=== PATIENT | female | born 1985 | race Caucasian/White ===

== ENCOUNTER 2022-12-27 00:45 | Day surgery (SDC) | payer OTHER, SELFPAY ==
[2022-12-21 15:14] VITALS: BMI 47.7
--- NOTE | 2022-12-21 15:35 | PC.NURSE ---
Report to the Outpatient Waiting Room, entrance under the green pavilion located off [facility], at time __1045 on date _12/27/22 . Planned Procedure Time: _1245 . Time changes happen often and if your time is changed the preop area will call you the afternoon before. - You and your visitor will be asked to self-screen and do not enter if you have any COVID symptoms. - A mask is optional within the hospital at this time. Patients may have clear liquids (water, carbonated beverages, clear teas, apple juice) until 3 hours prior to surgery with a maximum of 20 ounces. - No food from midnight until time of surgery Take the following medications with a SIP of water the morning of surgery: __ALPRAZOLAM, CITALOPRAM, BUSPIRONE DO NOT STOP ANY OF YOUR OTHER PRESCRIPTION MEDICATIONS PRIOR TO SURGERY ?EXCEPT THE FOLLOWING Medications to discontinue per physician N/A Date to take last dose N/A Please no make-up, nail tunisian, hairspray, perfume, deodorant, or body powder the day of surgery. No jewelry (including any body piercings) or valuables the day of surgery, leave them at home. Please take a shower or bath the night before, or the morning of, surgery with an antibacterial soap. Wear comfortable, loose fitting clothing. - Jewelry must be removed prior to entering the operating room. Rings and piercings that are not removed may be cut off. - The hospital will not accept responsibility for valuables. - Please leave all valuables, including medications, at home the day of surgery. If you are going home after surgery, a licensed lifter/driver must drive you home. - NO public transportation without another adult if you receive anesthesia. - We recommend that an adult stay with you for 24 hours following discharge. - We also recommend that you do not drive, make important decision, drink alcoholic beverages, or take any drugs that were not prescribed by your health care provider for at least 24 hours after your discharge time. Follow any additional instructions given to you from your surgeon. If you or anyone in your household have experienced Covid symptoms in the past week, please notify your surgeon or the nurse liaison at the phone number below for possible testing. Telephone instructions given to __HOA and asked if any additional questions and then verbalized understanding. Patient advised to call surgeon office or pre surgery nurse liaison [phone] if any additional questions.
--- NOTE | 2022-12-27 07:37 | WPDHPUPDATE1 ---
History and Physical Update Update Date/Time: 12/27/22 07:37 History and Physical has been reviewed, including an updated exam of the patient. There are NO changes in the patient's condition. Risks, benefits, and alternatives have been discussed and questions answered. Patient agrees to proceed with procedure.
--- NOTE | 2022-12-27 07:37 | PM.HPGS ---
History of Present Illness History of Present Illness Consent: Risks, benefits, and alternatives have been discussed and questions answered. Patient agrees to proceed with procedure. Chief complaint: Menorrhagia Narrative: Alyse Romero is a 37 year old female with heavy cycles. Cycles are regular lasting approximately 5 days. However 3 days are quite heavy changing 2 pads at a time every 2hours with clots and tissue. In addition the patient option also has severe cramping. Was recommended to proceed with D&C hysteroscopy. Risks of infection, bleeding, perforation, and possible pathology are reviewed. Patient voices understanding and agrees to proceed. Review of Systems Review of Systems: not repeated day of surgery; patient states no changes in status PMFSH Past Medical History Medical History (Updated 12/27/22 @ 07:42 by Lana Leo MD) Asthma Binge eating disorder Cystic acne Depression with anxiety Morbid (severe) obesity due to excess calories BMI is 54 Surgical History Surgical History (Updated 12/27/22 @ 07:40 by Lana Leo MD) History of cholecystectomy Family History Family History Grandparent Cerebrovascular accident Father COVID-19 Mother COVID-19 Anxiety Hypertension Other Acute myocardial infarction Social History Social History Smoking packs per day: 0.25 Smoking cigarettes per day: 5.0 Years smoked: 10 Smoking pack-years: 2.50 Smoking status: Light tobacco smoker Tobacco type: e-cigarettes/vaping Second hand tobacco smoke exposure: No Smoking end date: 12/21/17 Alcohol intake: never Drinks per week: 0 Substance use: never Substance use type: does not use Lack of Transportation: No Lack of Food: Never True Current Housing: I Have Housing Concerned About Future Housing: No Difficulty Paying Gas/Electric Bills: No Difficulty Paying for Meds: No Currently Unemployed: No Education: Bachelor's Degree Difficulty w/ Childcare or Family Care: No Living arrangements: with family 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 Gender identity (if verbalized by the patient): Female Spiritual care concerns: No Meds Home Medications and Allergies Home Medications Medication Instructions Recorded Confirmed Type albuterol sulfate 90 mcg/actuation See Rx Instructions .Route 11/01/22 12/21/22 Rx aerosol inhaler .COMPLEX #6.7 grams citalopram 40 mg tablet See Rx Instructions .Route 11/03/22 12/21/22 Rx .COMPLEX #90 tabs alprazolam 0.5 mg tablet 0.5 mg PO BID PRN anxiety #45 tabs 11/11/22 12/21/22 Rx triamcinolone acetonide 0.5 % 1 applic topical BID #15 grams 11/11/22 12/21/22 Rx topical cream buspirone 15 mg tablet 15 mg PO BID #60 tabs 11/30/22 12/21/22 Rx esomeprazole magnesium 20 mg 20 mg PO DAILY 11/30/22 12/21/22 History capsule,delayed release (Nexium) lisdexamfetamine 20 mg capsule 20 mg PO DAILY #30 caps 11/30/22 12/21/22 Rx (Vyvanse) clindamycin 1 %-benzoyl peroxide 5 1 applic topical DAILY PRN EZCEMA 12/21/22 12/21/22 History % topical gel Allergies Allergy/AdvReac Type Severity Reaction Status Date / Time pseudoephedrine AdvReac Unknown Shakiness Verified 12/21/22 15:31 Exam Const: General: alert and obese (315lb with a BMI of 54.1) Orientation/consciousness: patient oriented x3 Resp: Effort & Inspection: normal respiratory effort GI: GI Palp: Yes Soft to palpation, No Tenderness to palpation present (GI) and No Palpable mass present : External Female Exam: normal external appearance Speculum Exam - Vagina: normal appearance of the vagina and normal vaginal discharge Speculum Exam - Cervix: normal appearance of the cervix Bimanual exam- vagina & uterus: normal bimanual exam and other (Suboptimal exam due t
[2022-12-27] MEDS: LACTATED RINGERS 1,000 ML 30 ML IV CONT (11:30)
--- NOTE | 2022-12-27 11:42 | WPDANESEPPF ---
Anes - Initial Pre Proc Eval Procedure: Operation Date: 12/27/22 12:45 Proposed Procedures p Hysteroscopy Dilation and Curettage - Lana Leo MD Date/Time: 12/27/22 11:42 Surgeon: Lana Leo MD Pre Op Diagnosis: Menorrhagia Patient Data Age: 37 Gender: F Height: 1.63 m Weight: 126 kg Allergies Allergy/AdvReac Type Severity Reaction Status Date / Time pseudoephedrine AdvReac Unknown Shakiness Verified 12/21/22 15:31 Home Medications Medication Instructions Recorded Confirmed Type albuterol sulfate 90 mcg/actuation See Rx Instructions .Route 11/01/22 12/21/22 Rx aerosol inhaler .COMPLEX #6.7 grams citalopram 40 mg tablet See Rx Instructions .Route 11/03/22 12/21/22 Rx .COMPLEX #90 tabs alprazolam 0.5 mg tablet 0.5 mg PO BID PRN anxiety #45 tabs 11/11/22 12/21/22 Rx triamcinolone acetonide 0.5 % 1 applic topical BID #15 grams 11/11/22 12/21/22 Rx topical cream buspirone 15 mg tablet 15 mg PO BID #60 tabs 11/30/22 12/21/22 Rx esomeprazole magnesium 20 mg 20 mg PO DAILY 11/30/22 12/21/22 History capsule,delayed release (Nexium) lisdexamfetamine 20 mg capsule 20 mg PO DAILY #30 caps 11/30/22 12/21/22 Rx (Vyvanse) clindamycin 1 %-benzoyl peroxide 5 1 applic topical DAILY PRN EZCEMA 12/21/22 12/21/22 History % topical gel Patient hx anesthesia problems: none Family hx anesthesia problems: none Results Review: All pre-operative results and documents have been reviewed as part of the pre-operative evaluation. [facility] Past Medical History Medical History (Updated 12/27/22 @ 07:42 by Lana Leo MD) Asthma Binge eating disorder Cystic acne Depression with anxiety Morbid (severe) obesity due to excess calories BMI is 54 Surgical History Surgical History (Updated 12/27/22 @ 07:40 by Lana Leo MD) History of cholecystectomy Family History Family History Grandparent Cerebrovascular accident Father COVID-19 Mother COVID-19 Anxiety Hypertension Other Acute myocardial infarction Social History Social History Smoking packs per day: 0.25 Smoking cigarettes per day: 5.0 Years smoked: 10 Smoking pack-years: 2.50 Smoking status: Light tobacco smoker Tobacco type: e-cigarettes/vaping Second hand tobacco smoke exposure: No Smoking end date: 12/21/17 Alcohol intake: never Drinks per week: 0 Substance use: never Substance use type: does not use Lack of Transportation: No Lack of Food: Never True Current Housing: I Have Housing Concerned About Future Housing: No Difficulty Paying Gas/Electric Bills: No Difficulty Paying for Meds: No Currently Unemployed: No Education: Bachelor's Degree Difficulty w/ Childcare or Family Care: No Living arrangements: with family 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 Gender identity (if verbalized by the patient): Female Spiritual care concerns: No Anes - Eval Final PreProcedure Day of Procedure 12/27/22 11:42 Patient weight: morbidly obese Heart: regular rate and rhythm Lungs: clear to auscultation Airway: Mallampati scale class III Neurological: alert and oriented Last oral intake: >/= 8 hours ASA classification: III Emergent: no Anesthetic plan: proceed Anesthesia type and monitoring: general GIVS (LMA if needed) and LMA and standard monitoring Results Review: All pre-operative results and documents have been reviewed as part of the pre-operative evaluation. Informed Consent: The patient's anesthetic plan and its attendant risks and benefits were discussed with the patient/family/POA. Questions were solicited and answers provided to the satisfaction of the patient/family/POA.
[2022-12-27] MEDS: ACETAMINOPHEN 500 MG TABLET 1000 MG PO (12:00)
[2022-12-27 12:10] VITALS: BP 147/93; PULSE 93; RESP 16; TEMP 36.9; O2SAT 97
--- NOTE | 2022-12-27 13:03 | W.PM.PROC2 ---
Procedure Note - Detailed Date of Procedure 12/27/22 Pre-op Diagnosis Menorrhagia Post-op Diagnosis Same Procedure Performed D&C hysteroscopy Surgeon Lana Leo MD Anesthesia MAC Findings Uterus sounds to 7cm and appears grossly normal Description of Procedure The patient is taken to the operating room and placed under anesthesia in the dorsal lithotomy position. She was prepped and draped in the usual sterile fashion. [place] speculum was placed in the vagina and the cervix grasped on the anterior lip with a tenaculum. The uterus is sounded to 7cm. Hysteroscope was placed and with no abnormalities noted it is removed. The 00 sharp curette is used to curette the endometrium until a good uterine cry was noted in all areas. Minimal material was obtained. Instruments are removed. Sponge, needle, and instrument counts are correct per the OR staff. The patient was awakened from anesthesia and taken to recovery in stable condition. Estimated Blood Loss 5 Drains No Packing No Pathology Yes (Endometrial curettings) Complications No immediate complications Condition Stable Disposition PACU
[2022-12-27 13:04] VITALS: BP 150/95; PULSE 84; RESP 16; O2SAT 98
[2022-12-27] MEDS: fentaNYL CITRATE INJ (*CRX) 100 MCG/2 ML VIAL 25 MCG IV PUSH ×3 (13:29→13:42)
[2022-12-27 13:30] VITALS: BP 154/93; PULSE 69; RESP 16; O2SAT 98
[2022-12-27 14:00] VITALS: BP 164/103; PULSE 74; RESP 16
[2022-12-27] MEDS: oxyCODONE HCL (*CRX) 5 MG TAB IR PO (14:07)
[2022-12-27 14:30] VITALS: BP 164/101; PULSE 73; RESP 16
--- NOTE | 2022-12-27 14:35 | SUR.PHASEII ---
1415 DR. ALONSO AWARE OF ELEVATED BP'S; OKAY'D FOR PATIENT TO GO HOME
== END 2022-12-27 14:40 | disposition home or self-care (01) ==
PROVIDERS: PCP Family Medicine; Visit Provider Obstetrics & Gynecology Gynecology
PROC: 0U5B8ZZ Destruction of Endometrium, Via Natural or Artificial Opening Endoscopic (ICD-10-PCS; CPT 58563; principal; 2022-12-27 12:45)
DX: N92.0 Excessive and frequent menstruation with regular cycle (principal); J45.909 Unspecified asthma, uncomplicated; F50.81 Binge eating disorder; F41.8 Other specified anxiety disorders; F17.290 Nicotine dependence, other tobacco product, uncomplicated; Z79.51 Long term (current) use of inhaled steroids; E66.01 Morbid (severe) obesity due to excess calories; Z68.43 Body mass index [BMI] 50.0-59.9, adult
CPT/HCPCS: 58558; 88305; A9270; J1885; J2250; J2704; J3010; J7120

== ENCOUNTER 2022-12-30 11:30 | Emergency (ER) | payer OTHER, SELFPAY ==
--- NOTE | ~2022-12-30 | XR_ITS ---
EXAMINATION: XR thoracic spine 3V DATE: 12/30/2022 15:09 INDICATION: Thoracic back pain TECHNIQUE: AP, lateral and lateral swimmer's views of the thoracic spine were obtained. COMPARISON: 11/09/2009 FINDINGS: Alignment is normal. There is mild loss of intervertebral disc space height at multiple lev els in the thoracic spine. The vertebral body heights are maintained. Cholecystectomy clips are noted . There is no fracture. IMPRESSION: 1. Mild thoracic spondylosis without acute findings. Reviewed, dictated and finalized at location L.
[2022-12-30 11:46] VITALS: BP 151/102; PULSE 86; RESP 20; TEMP 36.7; O2SAT 99
[2022-12-30 14:51] LABS: Appearance Urine Clear (Clear); Bacteria Urine Rare /hpf; Bilirubin Urine Negative (Negative); Blood Urine 2+ (Negative); Color Urine Yellow (Yellow); Glucose Urine UA Negative (Negative); Ketones Urine Negative (Negative); Leukocyte Esterase Ur Trace LEU/UL (Negative); Nitrate Urine Negative (Negative); Non Pathogenic Casts 0-2; Protein Urine Negative (Negative); RBC Urine 0-2 /hpf (0-2); Specific Grav Ur 1.011 (1.001-1.035); Squamous Epithelial Cell Urine Few /hpf (Few); Urobilinogen Urine 0.2 mg/dL (<2.0); WBC Urine 0-5 /hpf
[2022-12-30 14:54] LABS: Add Urine Microscopic? YES
[2022-12-30] MEDS: KETOROLAC (*BKC) 60 MG/2 ML VIAL IM (15:15)
[2022-12-30] MEDS: CYCLOBENZAPRINE HCL 10 MG TABLET PO (15:15)
--- NOTE | 2022-12-30 15:44 | ED.GENADULT ---
HPI - General Adult General Chief complaint: Urogenital-Female Stated complaint: flank pain right Time Seen by Provider: 12/30/22 14:40 History of Present Illness HPI narrative: Patient is a 37-year-old female who presents ER with right-sided back pain. Ongoing over a week. Worse with bending and twisting. No numbness or tingling. No urinary frequency urgency or dysuria. Patient did have a recent D&C but reports symptoms were occurring prior to the procedure. She denies any trauma. She is found no alleviating factors. Related Data Home Medications Medication Instructions Recorded Confirmed esomeprazole magnesium 20 mg 20 mg PO DAILY 11/30/22 12/21/22 capsule,delayed release (Nexium) clindamycin 1 %-benzoyl peroxide 5 1 applic topical DAILY PRN EZCEMA 12/21/22 12/21/22 % topical gel Allergies Allergy/AdvReac Type Severity Reaction Status Date / Time pseudoephedrine AdvReac Unknown Shakiness Verified 12/27/22 12:09 Review of Systems Constitutional: Constitutional: Denies chills and Denies fever(s) Musculoskeletal: Musculoskeletal: Reports back pain, Denies arthralgias and Denies joint swelling Integumentary/Breasts: Skin/Breast: Denies pruritus, Denies erythema and Denies rash Neurologic: Denies focal weakness and Denies numbness PMFSH Past Medical History Medical History (Updated 12/30/22 @ 15:48 by Jarrell Lopez MD) Asthma Binge eating disorder Cystic acne Depression with anxiety Morbid (severe) obesity due to excess calories BMI is 54 Surgical History Surgical History (Updated 12/27/22 @ 07:40 by Lana Leo MD) History of cholecystectomy Family History Family History Grandparent Cerebrovascular accident Father COVID-19 Mother COVID-19 Anxiety Hypertension Other Acute myocardial infarction Social History Social History Smoking packs per day: 0.25 Smoking cigarettes per day: 5.0 Years smoked: 10 Smoking pack-years: 2.50 Smoking status: Light tobacco smoker Tobacco type: e-cigarettes/vaping Second hand tobacco smoke exposure: No Smoking end date: 12/21/17 Alcohol intake: never Drinks per week: 0 Substance use: never Substance use type: does not use Lack of Transportation: No Lack of Food: Never True Current Housing: I Have Housing Concerned About Future Housing: No Difficulty Paying Gas/Electric Bills: No Difficulty Paying for Meds: No Currently Unemployed: No Education: Bachelor's Degree Difficulty w/ Childcare or Family Care: No Living arrangements: with family 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 HEAD: Normocephalic, atraumatic. CHEST: Clear to auscultation. No respiratory distress. HEART: Regular rate and rhythm. Normal peripheral pulses. ABDOMEN: Soft, nontender, nondistended. Back: No reproducible midline tenderness to T/L-spine. There is right paraspinal muscular tenderness of the thoracic level near T10. EXTREMITIES: Normal range of motion. No edema. NEURO: Alert and oriented x3. PSYCH: Normal mood and affect. Course Course Emergency Course: Patient resting comfortably. Informed of results. Patient felt appropriate for discharge home. Will start on anti-inflammatories muscle relaxers. Vital Signs Vital signs: Vital Signs Temperature 98.1 F 12/30/22 11:46 Pulse Rate 86 12/30/22 11:46 Respiratory Rate 20 12/30/22 11:46 Blood Pressure 151/102 H 12/30/22 11:46 Pulse Oximetry 99 12/30/22 11:46 Oxygen Delivery Room Air 12/30/22 11:46 Temperature 98.1 F 12/30/22 11:46 Pulse Rate 86 12/30/22 11:46 Respiratory Rate 20
== END 2022-12-30 17:02 | disposition home or self-care (01) ==
PROVIDERS: Emergency Medicine; Emergency Provider Emergency Medicine; PCP Family Medicine
DX: S29.012A Strain of muscle and tendon of back wall of thorax, initial encounter (principal); J45.909 Unspecified asthma, uncomplicated; E66.01 Morbid (severe) obesity due to excess calories; Z68.41 Body mass index [BMI] 40.0-44.9, adult; Z87.891 Personal history of nicotine dependence; Z90.49 Acquired absence of other specified parts of digestive tract; M47.814 Spondylosis without myelopathy or radiculopathy, thoracic region; X58.XXXA Exposure to other specified factors, initial encounter
CPT/HCPCS: 72072; 81001; 81025; 96372; 99283; A9270; J1885